=== PATIENT | female | born 1980 | race Hispanic/Latino ===

== ENCOUNTER 2018-09-05 11:58 | Observation (INO) | payer OTHER | END 2018-09-05 14:56 | disposition home or self-care (01) | LOC: LDH 11:58 | PROVIDERS: ADMIT Obstetrics & Gynecology; ATTEND Obstetrics & Gynecology | DX: O24.913 Unspecified diabetes mellitus in pregnancy, third trimester (principal); O99.343 Other mental disorders complicating pregnancy, third trimester; F32.9 Major depressive disorder, single episode, unspecified; Z3A.31 31 weeks gestation of pregnancy | CPT/HCPCS: G0378 ×3; J7120; 96360 ==